=== PATIENT | male | born 1955 | race Hispanic/Latino ===

== ENCOUNTER 2025-04-02 08:45 | Outpatient (CLI) | payer BC, MEDICARE ==
[2025-04-02 09:44] LABS: Estimated GFR - POC 60.0
[2025-04-02] MEDS ORDERED: Iopamidol 370 76% 100 ML VIAL ONE (14:45)
== END 2025-04-02 08:46 | disposition home or self-care (01) ==
LOC: EDBD → CT 08:45 → EDBD 09:00
PROVIDERS: ATTEND Internal Medicine
DX: R19.02 Left upper quadrant abdominal swelling, mass and lump (principal); I51.89 Other ill-defined heart diseases; K40.90 Unilateral inguinal hernia, without obstruction or gangrene, not specified as recurrent; K57.30 Diverticulosis of large intestine without perforation or abscess without bleeding
CPT/HCPCS: 36415; 74177; 78452; 82565; A9502; J2785; Q9967